=== PATIENT | female | born 1980 | race Caucasian/White ===

== ENCOUNTER 2019-02-18 09:58 | Emergency (ER) | payer SELFPAY ==
[2019-02-18] MEDS ORDERED: Sodium Chloride 0.9% 10 ML Syringe FLUSH PRN (10:11)
--- NOTE | 2019-02-18 10:11 | EDM.PDOC ---
ED HPI GENERAL MEDICAL PROBLEM - General Chief Complaint: General Stated Complaint: high glucose reading as outpt clinic 647 Time Seen by Provider: 02/18/19 10:05 Source of Information: Reports: Patient, Old Records ([facility] chart/EMR), Other ([facility] EMR) History Limitations: Reports: No Limitations - History of Present Illness INITIAL COMMENTS - FREE TEXT/NARRATIVE: The patient drove herself to the emergency room via private automobile for evaluation of newly diagnosed severe hyperglycemia by blood work at time of her yearly exam by her regular provider, Dorina Nowak PA-C, [facility] in [place], yesterday. She does have a previous history of gestational diabetes with strong family history of diabetes mellitus as below, however no known previous hyperglycemia or significant current symptoms other than some moderate polydipsia, which started about 3 months ago and some nonspecific visual changes with 30 pound weight loss during the same time period. She was diagnosed with a nonspecific vaginal infection yesterday and did take one dose of Diflucan, however has yet to start her oral Flagyl therapy. No recent history of abdominal pain, heartburn, nausea, diarrhea, melena, gross hematochezia, or any food intolerance, including fatty foods, etc.. She denies any gross hematuria, colic, or other UTI symptoms. The patient denies any chest pain/pressure, heart flutter, dizziness, orthostasis, orthopnea, diaphoresis, paresthesias, recent decreased exercise tolerance, or any other anginal-type symptoms. No recent history of abdominal pain, heartburn, nausea, diarrhea, melena, gross hematochezia, or any food intolerance, including fatty foods, etc.. The patient also denies any recent fever, cough, wheezing, dyspnea, etc.. She did get an influenza booster this past season. No history of recent headaches, other visual changes, diplopia, change in mental status, or other change in neurological status. She does not have any pain or discomfort. Onset Date: 02/17/19 Duration: Other (As above) Location: Reports: Other (No pain) Improves with: Reports: None Worsens with: Reports: None Context: Reports: Other (As above). 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 Denies: Allergic Rhinitis, Cataract, Glaucoma, Hard of Hearing, Impaired Vision, Macular Degeneration, Otitis Media, Retinal Detachment Cardiovascular History: Reports: High Cholesterol, Other (See Below). Denies: Afib, Aneurysm, Arrhythmia, Blood Clots/VTE/DVT, CAD, Heart Murmur, Hypertension , PA, PVD, Syncope Other Cardiovascular History: Dyslipidemia. Respiratory History: Reports: None, Intubation, Previous. Denies: Asthma, Bronchitis, Recurrent, COPD, Intubation, Difficult, PE, Pneumothorax, Pulmonary Fibrosis, Sleep Apnea, TB Gastrointestinal History: Reports: Chronic Constipation. Denies: Bowel Obstruction, Celiac Disease, Cholelithiasis, Chronic Diarrhea, Diverticulosis, Fecal Incontinence, Gastritis, GERD, GI Bleed, Hepatitis, Inflammatory Bowel Disease, Irritable Bowel Syndrome, Jaundice, Pancreatitis, PUD Genitourinary History: Reports: None. 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 History of gestational diabetes with last in 2013. History of atypical quad screen and atypical antibody of also in possibly her last . Otherwise Full term without complications during pregnancies or deliveries Musculoskeletal History: Reports: None. Denies: Amputation, Arthritis, Back Pain, Chronic, Fracture, Gout, Neck Pain, Chronic, Osteoarthritis, RA, SLE Neurological History: Denies: Cerebral Aneurysms, Concussion, Headaches, Chronic , Head Trauma, Migraines, MS, Neuropathy, Diabetic, Neuropathy, Peripheral, Parkinson's, Seizure, TIA, Vertigo Psychiatric History: Reports: None. Denies: Abuse, Victim of, ADD, ADHD, Addiction, Anxiety, Depression, Hallucinations, Psych Hospitalization(s), PTSD, Suicide Attempt, Suicidal Ideation Endocrine/Metabolic History: Reports: Diabetes, Gestational, IDDM. Denies: Diabetes, Type I, Diabetes, Type II, Diabetes Mellitus, Type 3c, Hypothyroidism Hematologic History: Reports: Other (See Below). Denies: Anemia, Blood Transfusion(s), Iron Deficiency Other Hematologic History: Nonspecific atypical antibody of as above. Immunologic History: Reports: None. Denies: AIDS, HIV, SLE Oncologic (Cancer) History: Reports: None. Denies: Basal Cell Carcinoma, Breast , Cervix, Hodgkin's Lymphoma, Leukemia, Lymphoma, Malignant Melanoma, Non- Hodgkin's Lymphoma, Ovarian, Squamous Cell Carcinoma, Uterine Dermatologic History: Reports: None. Denies: Eczema, Psoriasis - Infectious Disease History Infectious Disease History: Reports: Chicken Pox. Denies: C-Difficile, Measles , Meningitis, Mononucleosis, MRSA, Mumps, Pertussis (Whooping Cough), Rubella, Scarlet Fever, Shingles, TB, VRE - Past Surgical History Head Surgeries/Procedures: Reports: None HEENT Surgical History: Reports: Oral Surgery, Other (See Below). Denies: Adenoidectomy, Cataract Surgery, Eye Surgery, Laser Surgery, LASIK, Myringotomy w Tube(s), Naso-Sinus Surgery, Tonsillectomy Other HEENT Surgeries/Procedures: Multiple teeth extractions with current complete upper dentures. Cardiovascular Surgical History: Reports: None. Denies: Varicose, Vascular Surgery Respiratory Surgical History: Reports: None. Denies: Thoracentesis GI Surgical History: Reports: None. Denies: Appendectomy, Cholecystectomy, Colonoscopy, EGD, Hernia, Abdominal, Hernia, Inguinal, Hernia Repair/Other Female Surgical History: Reports: Tubal Ligation, Other (See Below). Denies : Breast Biopsy, Breast Implant, Breast Reconstruction, Cervical Cryotherapy, Cystoscopy, D&C, Hysterectomy, Oophorectomy, Salpingo-Oophorectomy Other Female Surgeries/Procedures: Bilateral tubal ligation on 02/25/13. Endocrine Surgical History: Reports: None. Denies: Thyroid Biopsy Neurological Surgical History: Denies: C-Spine, Discectomy, Laminectomy, Lumbar Spine, Sacral Spine, Spinal Fusion, Thoracic Spine, Vertebroplasty Musculoskeletal Surgical History: Denies: Arthroscopic Procedure, Carpal Tunnel , Ganglion Cyst, Joint Replacement, ORIF, Shoulder Surgery Oncologic Surgical History: Reports: None Dermatological Surgical History: Reports: None - Past Imaging History Past Imaging History: Reports: Ultrasound (Previous OB ultrasounds.). Denies: Mammogram (No mammogram to this point.) Social & Family History - Family History HEENT: Reports: Glaucoma, Other (See Below). Denies: Impaired Vision, Macular Degeneration, Retinal Detachment Other HEENT Family History: Parents, maternal/paternal grandparents, and all siblings wear glasses. Maternal grandmother with glaucoma. Cardiac: Reports: CAD, Heart Failure, High Cholesterol, Hypertension, PA, Other (See Below). Denies: Afib, Aneurysm, Arrhythmia, Blood Clots/VTE/DVT, Bypass, Heart Murmur, Pacemaker, PVD/COD, Stent, Syncope Other Cardiac Family History: Maternal grandmother with history of multiple MIs with fatal CHF in her late 70s or early 80s. Mother with hypertension and hyperlipidemia. Respiratory: Denies: Asthma, COPD, PE, Pneumothorax, Sleep Apnea, TB GI: Reports: Other (See Below). Denies: Celiac Disease, Cholelithiasis, Colon Polyps, Diverticulitis, Diverticulosis, GERD, GI bleed, Inflammatory Bowel Disease, Irritable Bowel Syndrome, Pancreatitis Other GI Family History: Mother with history of bowel resection secondary to perforated colon. : Reports: None. Denies: Renal Calculus, Renal Disease/Insufficiency OBGYN: Reports: None. Denies: Dysfunctional uterine bleeding, Endometriosis, Fibroids, Recurrent Spontaneous Musculoskeletal: Reports: None. Denies: Arthritis, Gout, RA, SLE Neurological: Reports: Alzheimers Disease, Dementia, Other (See Below). Denies : CVA, Migraines, MS, Neuropathy, Diabetic, Neuropathy, Peripheral, Parkinson's , Seizure, TIA Other Neurological Family History: Paternal grandmother with organic brain syndrome. Psychiatric: Denies: Abuse, Victim of, ADD, ADHD, Anxiety, Depression, Psych Hospitalization(s), PTSD, Suicide Attempt Endocrine/Metabolic: Reports: Diabetes, type II, Hypothyroidism, Other (See Below). Denies: Diabetes, Gestational, Diabetes, Type I, Diabetes Mellitus, Type 3c, IDDM Other Endocrine/Metabolic Family History: Diabetes mellitus in maternal grandmother, paternal grandfather, paternal grandmother, paternal aunts 2, and paternal uncle. Mother and sister with hypothyroidism. Hematologic: Reports: None. Denies: Anemia Immunologic: Reports: None. Denies: AIDS, HIV, SLE Dermatologic: Reports: None. Denies: Eczema, Psoriasis Oncologic: Reports: Bone, Brain, Metastatic, Other (See Below). Denies: Breast , Colon, Hodgkin's Lymphoma, Leukemia, Lung, Lymphoma, Non-Hodgkin's Lymphoma, Ovarian, Skin, Uterine Other Oncologic Family History: Paternal grandfather with unknown type of fatal bone disorder-? Multiple myeloma fatal in his late 70s. Paternal grandmother with breast cancer in her late 70s. Maternal grandfather with fatal metastatic brain cancer in his 70s. - Tobacco Use Smoking Status *Q: Current Every Day Smoker Tobacco Use Within Last Twelve Months: Cigarettes Years of Tobacco use: 24 Packs/Tins Daily: 0.8 Packs/Tins Daily Comment: Started smoking at age 14 with a maximum use of one pack per day. Used Tobacco, but Quit: No Smoking Cessation Information Provided To Patient: Yes Second Hand Smoke Exposure: No Second Hand Smoke Education Provided: No - Caffeine Use Caffeine Use: Reports: Coffee (One cup per day), Soda (4 sodas per day). Denies : Energy Drinks, Tea - Alcohol Use Alcohol Use History: Yes Days Per Week of Alcohol Use: 0 Number of Drinks Per Day: 3 Number of Drinks Per Day Comment: Usually beer only a couple times per year. No previous DWIs, problems with alcohol abuse, etc. 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 ED EXAM, GENERAL - Physical Exam Exam: See Below Exam Limited By: No Limitations General Appearance: Alert, WD/WN, No Apparent Distress Eye Exam: Bilateral Eye: EOMI, Normal Fundi, Normal Inspection (No nystagmus), PERRL Ears: Normal External Exam, Normal Canal, Hearing Grossly Normal, Normal TMs Nose: Normal Inspection, Normal Mucosa, No Blood Throat/Mouth: Normal Lips, Normal Gums, Other. No: Normal Teeth (Complete upper dentures with only a few remaining lower dentition including broken teeth into the gumline of all teeth with no acute abscess or drainage), Normal Oropharynx, Normal Voice, No Airway Compromise, Dysphagia, Inflammation, Perioral Cyanosis Head: Atraumatic, Normocephalic, Other (Mild hair loss). No: Facial Swelling, Facial Tenderness, Sinus Tenderness Neck: Normal Inspection, Supple, Non-Tender, Full Range of Motion. No: Carotid Bruit, Lymphadenopathy (L), Lymphadenopathy (R), Thyromegaly Respiratory/Chest: No Respiratory Distress, Lungs Clear, Normal Breath Sounds, No Accessory Muscle Use, Chest Non-Tender. No: Pleural Rub, Retractions Cardiovascular: Normal Peripheral Pulses, Regular Rate, Rhythm, No Edema, No Gallop, No JVD, No Murmur, No Rub. No: Gallop/S3, Gallop/S4, Friction Rub Peripheral Pulses: 2+: Radial (L), Radial (R), Dorsalis Pedis (L), Dorsalis Pedis (R) GI/Abdominal: Normal Bowel Sounds, Soft, Non-Tender, No Organomegaly, No Distention, No Abnormal Bruit, No Mass, Pelvis Stable. No: Guarding (Female) Exam: Deferred Rectal (Female) Exam: Deferred Back Exam: Normal Inspection, Full Range of Motion. No: CVA Tenderness (L), CVA Tenderness (R), Muscle Spasm Extremities: Normal Inspection, Normal Range of Motion, Non-Tender, No Pedal Edema, Normal Capillary Refill. No: Makayla's Sign Neurological: Alert, Oriented, CN II-XII Intact, Normal Cognition, Normal Gait, Normal Reflexes (Negative Babinski's), No Motor/Sensory Deficits Psychiatric: Normal Affect, Normal Mood Skin Exam: Warm, Dry, Intact, Normal Color, No Rash, Stud(s) (Multiple, including nasal region or cold regions bilaterally). No: Diaphoretic, Wound/ Incision Lymphatic: No Adenopathy EKG INTERPRETATION EKG Date: 02/18/19 Time: 10:46 Rhythm: NSR Rate (Beats/Min): 87 [place]: Normal (Neutral cardiac axis) P-Wave: Present QRS: Normal (0.08 seconds with T-wave inversion in leads 3 and V1 with somewhat noisy baseline) ST-T: Normal QT: Prolonged (384/462 ms) Comparison: NA - No Prior EKG EKG Interpretation Comments: 1. No acute ischemic changes 2. Borderline Prolonged QT Course - Vital Signs Last Recorded V/S: Last Vital Signs Temp 36.8 C 02/18/19 10:07 Pulse 86 02/18/19 11:51 Resp 16 02/18/19 11:51 BP 128/97 H 02/18/19 11:51 Pulse Ox 99 02/18/19 11:51 - Orders/Labs/Meds Orders: Active Orders 24 hr Category Date Time Status Cardiac Monitoring [RC] . DIRECTED Care 02/18/19 10:53 Active EKG Documentation Completion [RC] ASDIRECTED Care 02/18/19 10:18 Active Peripheral IV Care [RC] . DIRECTED Care 02/18/19 10:18 Active Chest 2V [CR] Urgent Exams 02/18/19 10:12 Taken CULTURE URINE [RM] Routine Lab 02/18/19 10:29 Received MICROALBUMIN, URINE RANDOM Routine Lab 02/18/19 10:29 Received Sodium Chloride 0.9% [Saline Flush] Med 02/18/19 10:11 Active 10 ml FLUSH ASDIRECTED PRN Obtain Past Medical Record [OM.PC] Routine Oth 02/18/19 10:13 Active Peripheral IV Insertion Adult [OM.PC] Stat Oth 02/18/19 10:14 Ordered Resuscitation Status Routine Resus Stat 02/18/19 10:11 Ordered Medication Orders Sodium Chloride (Saline Flush) 10 ml FLUSH ASDIRECTED PRN PRN Reason: Keep Vein Open Labs: Laboratory Tests 02/18/19 02/18/19 02/18/19 Range/Units 10:25 10:25 10:25 WBC 7.6 (4.0-10.2) K/uL RBC 4.99 (3.77-5.09) M/uL Hgb 14.9 (11.7-15.5) g/dL Hct 42.7 (34.0-46.0) % MCV 85.6 (84.0-98.0) fL MCH 29.9 (28.2-33.3) pg MCHC 34.9 (31.7-36.0) g/dL RDW 13.0 (11.2-14.1) % Plt Count 227 (150-350) K/uL Neut % (Auto) 66.4 (45.0-80.0) % Lymph % (Auto) 25.6 (10.0-50.0) % [place] % (Auto) 5.6 (2.0-14.0) % Eos % (Auto) 2.0 (0.0-5.0) % Baso % (Auto) 0.4 (0.0-2.0) % Neut # (Auto) 5.02 (1.40-7.00) K/uL Lymph # (Auto) 1.93 (0.50-3.50) K/uL [place] # (Auto) 0.42 (0.00-1.00) K/uL Eos # (Auto) 0.15 (0.00-0.50) K/uL Baso # (Auto) 0.03 (0.00-0.20) K/uL Sodium 137 (136-145) mmol/L Potassium 3.4 L (3.5-5.1) mmol/L Chloride 99 (98-107) mmol/L Carbon Dioxide 25.3 (21.0-32.0) mmol/L BUN 5 L (7-18) mg/dL Creatinine 0.46 L (0.51-1.17) mg/dL Est Cr Clr Drug Dosing 158.09 mL/min Estimated GFR (MDRD) > 60 mL/min Glucose 321 H (74-106) mg/dL Hemoglobin A1c (4.3-5.7) % Lactic Acid (0.4-2.0) mmol/L Uric Acid 3.2 (2.6-7.2) mg/dL Calcium 8.9 (8.5-10.1) mg/dL Phosphorus 3.2 (2.6-4.7) mg/dL Magnesium 1.5 L (1.8-2.4) mg/dL Total Bilirubin 0.5 (0.2-1.0) mg/dL AST 14 L (15-37) U/L ALT 19 (12-78) U/L Alkaline Phosphatase 98 (46-116) IU/L Total Protein 7.6 (6.4-8.2) g/dL Albumin 3.9 (3.4-5.0) g/dL Specimen Type Urine Color Urine Appearance Urine pH (5.0-9.0) Ur Specific [place] (1.005-1.030) Urine Protein (NEGATIVE) mg/dL Urine Glucose (UA) (NEGATIVE) mg/dL Urine Ketones (NEGATIVE) mg/dL Urine Occult Blood (NEGATIVE) Urine Nitrite (NEGATIVE) Urine Bilirubin (NEGATIVE) Urine Acetone (NEGATIVE) Urine Urobilinogen (0.2-1.0) E.U./dL Ur Leukocyte Esterase (NEGATIVE) Urine RBC /HPF Urine WBC /HPF Ur Epithelial Cells /LPF Urine Bacteria (NONE TO FEW) /HPF Ketones Negative 02/18/19 02/18/19 02/18/19 Range/Units 10:25 10:25 10:29 WBC (4.0-10.2) K/uL RBC (3.77-5.09) M/uL Hgb (11.7-15.5) g/dL Hct (34.0-46.0) % MCV (84.0-98.0) fL MCH (28.2-33.3) pg MCHC (31.7-36.0) g/dL RDW (11.2-14.1) % Plt Count (150-350) K/uL Neut % (Auto) (45.0-80.0) % Lymph % (Auto) (10.0-50.0) % [place] % (Auto) (2.0-14.0) % Eos % (Auto) (0.0-5.0) % Baso % (Auto) (0.0-2.0) % Neut # (Auto) (1.40-7.00) K/uL Lymph # (Auto) (0.50-3.50) K/uL [place] # (Auto) (0.00-1.00) K/uL Eos # (Auto) (0.00-0.50) K/uL Baso # (Auto) (0.00-0.20) K/uL Sodium (136-145) mmol/L Potassium (3.5-5.1) mmol/L Chloride (98-107) mmol/L Carbon Dioxide (21.0-32.0) mmol/L BUN (7-18) mg/dL Creatinine (0.51-1.17) mg/dL Est Cr Clr Drug Dosing mL/min Estimated GFR (MDRD) mL/min Glucose (74-106) mg/dL Hemoglobin A1c > 14.0 H (4.3-5.7) % Lactic Acid 1.1 (0.4-2.0) mmol/L Uric Acid (2.6-7.2) mg/dL Calcium (8.5-10.1) mg/dL Phosphorus (2.6-4.7) mg/dL Magnesium (1.8-2.4) mg/dL Total Bilirubin (0.2-1.0) mg/dL AST (15-37) U/L ALT (12-78) U/L Alkaline Phosphatase (46-116) IU/L Total Protein (6.4-8.2) g/dL Albumin (3.4-5.0) g/dL Specimen Type Urine Color Urine Appearance Urine pH (5.0-9.0) Ur Specific [place] (1.005-1.030) Urine Protein (NEGATIVE) mg/dL Urine Glucose (UA) (NEGATIVE) mg/dL Urine Ketones (NEGATIVE) mg/dL Urine Occult Blood (NEGATIVE) Urine Nitrite (NEGATIVE) Urine Bilirubin (NEGATIVE) Urine Acetone Moderate H (NEGATIVE) Urine Urobilinogen (0.2-1.0) E.U./dL Ur Leukocyte Esterase (NEGATIVE) Urine RBC /HPF Urine WBC /HPF Ur Epithelial Cells /LPF Urine Bacteria (NONE TO FEW) /HPF Ketones 02/18/19 Range/Units 10:29 WBC (4.0-10.2) K/uL RBC (3.77-5.09) M/uL Hgb (11.7-15.5) g/dL Hct (34.0-46.0) % MCV (84.0-98.0) fL MCH (28.2-33.3) pg MCHC (31.7-36.0) g/dL RDW (11.2-14.1) % Plt Count (150-350) K/uL Neut % (Auto) (45.0-80.0) % Lymph % (Auto) (10.0-50.0) % [place] % (Auto) (2.0-14.0) % Eos % (Auto) (0.0-5.0) % Baso % (Auto) (0.0-2.0) % Neut # (Auto) (1.40-7.00) K/uL Lymph # (Auto) (0.50-3.50) K/uL [place] # (Auto) (0.00-1.00) K/uL Eos # (Auto) (0.00-0.50) K/uL Baso # (Auto) (0.00-0.20) K/uL Sodium (136-145) mmol/L Potassium (3.5-5.1) mmol/L Chloride (98-107) mmol/L Carbon Dioxide (21.0-32.0) mmol/L BUN (7-18) mg/dL Creatinine (0.51-1.17) mg/dL Est Cr Clr Drug Dosing mL/min Estimated GFR (MDRD) mL/min Glucose (74-106) mg/dL Hemoglobin A1c (4.3-5.7) % Lactic Acid (0.4-2.0) mmol/L Uric Acid (2.6-7.2) mg/dL Calcium (8.5-10.1) mg/dL Phosphorus (2.6-4.7) mg/dL Magnesium (1.8-2.4) mg/dL Total Bilirubin (0.2-1.0) mg/dL AST (15-37) U/L ALT (12-78) U/L Alkaline Phosphatase (46-116) IU/L Total Protein (6.4-8.2) g/dL Albumin (3.4-5.0) g/dL Specimen Type Urincc Urine Color Yellow Urine Appearance Clear Urine pH 5.5 (5.0-9.0) Ur Specific [place] 1.015 (1.005-1.030) Urine Protein Negative (NEGATIVE) mg/dL Urine Glucose (UA) >=1000 H (NEGATIVE) mg/dL Urine Ketones 80 H (NEGATIVE) mg/dL Urine Occult Blood Negative (NEGATIVE) Urine Nitrite Negative (NEGATIVE) Urine Bilirubin Negative (NEGATIVE) Urine Acetone (NEGATIVE) Urine Urobilinogen 0.2 (0.2-1.0) E.U./dL Ur Leukocyte Esterase Negative (NEGATIVE) Urine RBC 0-5 /HPF Urine WBC 0-5 /HPF Ur Epithelial Cells Few /LPF Urine Bacteria Few (NONE TO FEW) /HPF Ketones Urine specimen set up for culture and sensitivity. Meds: Medications Generic Name Dose Route Start Last Admin Trade Name Juliana PRN Reason Stop Dose Admin Sodium Chloride 10 ml 02/18/19 10:11 Saline Flush FLUSH ASDIRECTED PRN Keep Vein Open Discontinued Medications Generic Name Dose Route Start Last Admin Trade Name Freq PRN Reason Stop Dose Admin Lactated Ringer's 1,000 mls @ 999 mls/hr 02/18/19 10:19 02/18/19 10:33 Ringers, Lactated IV 02/18/19 11:19 999 mls/hr .BOLUS ONE Administration Lactated Ringer's 1,000 mls @ 999 mls/hr 02/18/19 11:47 02/18/19 11:50 Ringers, Lactated IV 02/18/19 12:47 999 mls/hr .BOLUS ONE Administration - Radiology Interpretation Free Text/Narrative:: 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 Chest x-ray, PA and lateral, shows evidence of probable pulmonary obstructive disease with mildly prominent proximal aortic arch with no other significant pulmonary infiltrates, cardiomegaly, CHF, pneumothorax, etc.. Mild osteoarthritic changes noted. Departure - Departure Time of Disposition: 12:55 Disposition: Against Medical Advice 07 Condition: Good Clinical Impression: IDDM (insulin dependent diabetes mellitus), Dyslipidemia, Caries, Tobacco abuse counseling, Hair loss, Hypokalemia, Hypomagnesemia, Dehydration, Elevated blood pressure reading Vaginitis Qualifiers: Chronicity: acute Qualified Code(s): N76.0 - Acute vaginitis - Discharge Information *PRESCRIPTION DRUG MONITORING PROGRAM REVIEWED*: Not Applicable *COPY OF PRESCRIPTION DRUG MONITORING REPORT IN PATIENT [place]: Not Applicable Prescriptions: Magnesium Oxide 400 mg PO DAILY #20 tab Instructions: Hyperglycemic Hyperosmolar State, Type 2 Diabetes Mellitus, Diagnosis, Adult, Health Risks of Smoking, Fat and Cholesterol Restricted Eating Plan, Smoking Tobacco Information, Adult, Coping With Diabetes, Fat and Cholesterol Restricted Eating Plan, [id number], Diabetes Mellitus and Nutrition, Adult Referrals: PCP,None [Primary Care Provider] - Forms: ED Department Discharge, ED Return to Work/School Form Additional Instructions: 1. Follow-up with your regular provider tomorrow morning for reevaluation and recommended repeat CBC, fasting after midnight basic metabolic panel, and magnesium level 2. Initiate diabetic teaching, including home blood sugar evaluations, etc. NIRMALA at that visit. 3. Encourage oral fluids as directed. 4. Work excuse- See Form 5. Stop all tobacco use NIRMALA as directed/per provided information and consider contacting Quit LIne, etc.. 6. Follow-up with your dentist NIRMALA as discussed. 7. Please remember that we are ALWAYS here for you and want to answer any questions you may have. Feel free to call the hospital any time and we call you back NIRMALA. 8. Immediately after this visit verify that your cellular telephone's voicemail has been activated and is empty. Also verify that your home telephone 's answering machine is operating properly and has space to receive messages. Note that it is sometimes necessary for us to be able to contact you at a later date to discuss your medical care. 9. Continue to observe your blood pressures closely through your regular provider. 10. Diabetic eye exam NIRMALA as discussed. Care Plan Goals: See plan - Problem List & Annotations (1) IDDM (insulin dependent diabetes mellitus) SNOMED Code(s): 18511056 Code(s): E11.9 - TYPE 2 DIABETES MELLITUS WITHOUT COMPLICATIONS; Z79.4 - HALF-WAY (CURRENT) USE OF INSULIN Status: Acute Priority: High Current Visit: No Onset Date: 02/18/19 Annotation/Comment:: Newly diagnosed probable IDDM secondary to her significantly elevated nonfasting blood sugars yesterday. Initial plans to admit the patient to either observation or inpatient care for diabetic teaching, further treatment, etc. however patient does refuse recommended hospitalization secondary to financial issues. She was counseled extensively concerning the risks of this decision, including possible coma, , etc.. Close follow-up by her regular provider as per discharge instructions. Her regular provider did call her in some metformin therapy earlier this morning. Patient should likely be started on a statin secondary to her newly diagnosed diabetes mellitus with strong likelihood of need for insulin therapy in the future depending on her clinical course and especially in light of her nonfasting glucose in the 600s yesterday. Aggressive initiation of treatment in the emergency room as above, including 2 L of lactated Ringer's IVB. Continue aggressive oral hydration at home. Consider additional initiation of a an insulin sliding scale on an outpatient basis until her insulin requirement is determined. Blood work results from 02/17/19 from the [facility] were reviewed with glycosylated hemoglobin greater than 15. Note that our blood sample results were repeated and confirmed today with persistent elevated glycosylated hemoglobin of 14. I did request the [facility] in [place] to have the glucose and glycosylated hemoglobin results from 02/17 repeated on a stat basis. Initiate diabetic teaching, self Accu-Cheks, etc. NIRMALA on an outpatient basis. She may benefit from low-dose CARMINE inhibitor therapy as prophylaxis for microvascular changes. Note that the patient was prescribed metformin earlier this morning, however the patient has yet to start this medication. She did take one of her own tablets prior to discharge, however. (2) Dyslipidemia SNOMED Code(s): 751919052 Code(s): E78.5 - HYPERLIPIDEMIA, UNSPECIFIED Status: Chronic Priority: High Current Visit: No Onset Date: 02/17/19 Annotation/Comment:: Consider statin therapy as above. Close follow-up by her regular provider as per discharge instructions. Close follow-up by her regular provider with recommended repeat lipid panel in 3 months. Note recent unintentional weight loss likely secondary to her IDDM, however continue to observe closely by her regular provider with further workup depending on her clinical course. (3) Caries SNOMED Code(s): 81125826 Code(s): K02.9 - DENTAL CARIES, UNSPECIFIED Status: Chronic Priority: High Current Visit: No Annotation/Comment:: Secondary to significant hyperglycemia and multiple caries IV antibiotic therapy was initiated. Patient advised to follow-up with her dentist NIRMALA once her health status stabilizes. (4) Tobacco abuse counseling SNOMED Code(s): 133926563, 060584504, 717722259 Code(s): Z71.6 - TOBACCO ABUSE COUNSELING Status: Chronic Priority: Medium Current Visit: No Annotation/Comment:: Tobacco cessation strongly encouraged with information be provided at discharge. Note mild pulmonary obstructive disease based on today's chest x-ray. Consider PFTs depending on her clinical course. (5) Hair loss SNOMED Code(s): 129631605 Code(s): L65.9 - NONSCARRING HAIR LOSS, UNSPECIFIED Status: Acute Priority: Medium Current Visit: No Annotation/Comment:: Note patient has a history of nonspecific hair loss after receiving a permanent about 6 weeks ago. Her TSH on 02/17 was normal. She was advised no longer to obtain permanents, etc. (6) Vaginitis SNOMED Code(s): 38251911 Code(s): N76.0 - ACUTE VAGINITIS Status: Acute Priority: High Current Visit: No Onset Date: 02/17/19 Annotation/Comment:: Wet prep by her regular provider on 02/17 indicates probable vaginal moniliasis with no evidence of nonspecific additional vaginitis. Qualifiers: Chronicity: acute Qualified Code(s): N76.0 - Acute vaginitis (7) Hypokalemia SNOMED Code(s): 66624149 Code(s): E87.6 - HYPOKALEMIA Status: Acute Priority: High Current Visit : Yes Onset Date: 02/18/19 Annotation/Comment:: Newly diagnosed hypokalemia today with aggressive IV hydration with lactated Ringer's as above. Close follow -up by regular provider. Despite mildly elevated ketones in her urine her serum ketones and lactic acid levels were normal. No significant clinical dehydration. (8) Hypomagnesemia SNOMED Code(s): 728561868 Code(s): E83.42 - HYPOMAGNESEMIA Status: Acute Priority: Medium Current Visit: Yes Onset Date: 02/18/19 Annotation/Comment:: Initiate magnesium oxide therapy. Close follow-up by regular provider as per discharge instruction. (9) Dehydration SNOMED Code(s): 16792814 Code(s): E86.0 - DEHYDRATION Status: Acute Priority: High Current Visit : Yes Onset Date: 02/18/19 Annotation/Comment:: Borderline as above. Note polydipsia. Aggressive IV dehydration as above. (10) Elevated blood pressure reading SNOMED Code(s): 15791017 Code(s): R03.0 - ELEVATED BLOOD-PRESSURE READING, W/O DIAGNOSIS OF HTN Status: Acute Priority: High Current Visit: Yes Onset Date: 02/18/19 Annotation/Comment:: Multiple elevated blood pressures during the emergency room. Close follow-up by regular provider. Consider CARMINE inhibitor therapy as above. - Problem List Review Problem List Initiated/Reviewed/Updated: Yes - My Orders Last 24 Hours: My Active Orders 02/18/19 10:11 Sodium Chloride 0.9% [Saline Flush] 10 ml FLUSH ASDIRECTED PRN Resuscitation Status Routine 02/18/19 10:12 Chest 2V [CR] Urgent 02/18/19 10:13 Obtain Past Medical Record [OM.PC] Routine 02/18/19 10:14 Peripheral IV Insertion Adult [OM.PC] Stat 02/18/19 10:18 EKG Documentation Completion [RC] ASDIRECTED Peripheral IV Care [RC] . DIRECTED 02/18/19 10:29 CULTURE URINE [RM] Routine MICROALBUMIN, URINE RANDOM Routine 02/18/19 10:53 Cardiac Monitoring [RC] . DIRECTED - Assessment/Plan Last 24 Hours: My Active Orders 02/18/19 10:11 Sodium Chloride 0.9% [Saline Flush] 10 ml FLUSH ASDIRECTED PRN Resuscitation Status Routine 02/18/19 10:12 Chest 2V [CR] Urgent 02/18/19 10:13 Obtain Past Medical Record [OM.PC] Routine 02/18/19 10:14 Peripheral IV Insertion Adult [OM.PC] Stat 02/18/19 10:18 EKG Documentation Completion [RC] ASDIRECTED Peripheral IV Care [RC] . DIRECTED 02/18/19 10:29 CULTURE URINE [RM] Routine MICROALBUMIN, URINE RANDOM Routine 02/18/19 10:53 Cardiac Monitoring [RC] . DIRECTED Assessment:: As above. Plan: As above. Extensive precautions were given to the patient and her daughter, who are in agreement with the treatment plan. Extensive precautions were given to the patient, who is in agreement with the treatment plan. Note patient left AMA.
[2019-02-18] MEDS ORDERED: Lactated Ringers 1,000 ML IV ONE ×2 (10:19→11:47)
[2019-02-18 11:12] LABS: CHLORIDE,CL 99 mmol/L (98-107); SODIUM,NA 137 mmol/L (136-145)
[2019-02-18 11:52] LABS: HEMOGLOBIN A1C > 14.0 % (4.3-5.7)
== END 2019-02-18 12:49 | disposition left against medical advice (07) ==
LOC: LL.ED 09:58
DX: E86.0 Dehydration (principal); E87.6 Hypokalemia; E83.42 Hypomagnesemia; R03.0 Elevated blood-pressure reading, without diagnosis of hypertension; N76.0 Acute vaginitis; E78.5 Hyperlipidemia, unspecified; L65.9 Nonscarring hair loss, unspecified; K02.9 Dental caries, unspecified; E11.9 Type 2 diabetes mellitus without complications; Z79.4 Long term (current) use of insulin; Z71.6 Tobacco abuse counseling; F17.210 Nicotine dependence, cigarettes, uncomplicated
CPT/HCPCS: 36415; 71046; 80053; 81001; 81003; 82009; 82043; 82570; 83036; 83605; 83735; 84100; 84550; 85025; 87086; 93005; 96360; 96361; 99284-25; J7120